=== PATIENT | male | born 1990 | race Two or more races ===

== ENCOUNTER 2018-02-25 21:40 | Emergency (ER) | payer OTHER ==
[~2018-02-25] VITALS: Ht 175.3 cm; Wt 84.1 kg
[2018-02-25] MEDS ORDERED: BUPIVAcaine/PF 2.5 mg/ml (0.25%) 30ml vial IJ ONE (21:55)
[2018-02-25] MEDS ORDERED: TETanus/Pertussis (Acell)/Diphther VAC/PF (Tdap-Adult) 0.5ml syringe IM ONE (21:55)
[2018-02-25 22:19] VITALS: BP 127/77
[2018-02-25] MEDS ORDERED: CEPH500C2 PO (23:38)
[2018-02-25] MEDS ORDERED: HYDR-3965 PO (23:38)
[2018-02-25] MEDS ORDERED: ONDA4TAB12 PO (23:38)
[2018-02-25] MEDS ORDERED: IBUP-1986 PO (23:39)
== END 2018-02-25 23:55 | disposition home or self-care (01) ==
LOC: ER 21:41
DX: S62.611A Displaced fracture of proximal phalanx of left index finger, initial encounter for closed fracture (principal); Z79.899 Other long term (current) drug therapy; W23.0XXA Caught, crushed, jammed, or pinched between moving objects, initial encounter; Y93.89 Activity, other specified; Y92.89 Other specified places as the place of occurrence of the external cause; Y99.8 Other external cause status
CPT/HCPCS: 12001; 73140; 90471; 90715; 99284; A6449; J3490